=== PATIENT | male | born 1945 | race Two or more races ===

== ENCOUNTER 2023-02-21 14:25 | Inpatient (IN) | payer OTHER ==
[~2023-02-21] VITALS: Ht 172.7 cm; Wt 87.5 kg
[2023-02-21] MEDS ORDERED: LASIX20 MG PO (22:45)
[2023-02-21] MEDS ORDERED: PROSCAR5 MG PO (22:45)
[2023-02-21] MEDS ORDERED: TOPROL XL50 M1 PO (22:45)
[2023-02-21] MEDS ORDERED: TAMS0.4C PO (22:46)
[2023-02-21] MEDS ORDERED: VESICARE5 MG PO (22:46)
[2023-02-22] MEDS ORDERED: METOPROLOL TART50 MG PO (01:04)
== END 2023-02-28 11:32 | disposition home or self-care (01) | DRG 922 ==
LOC: ER 14:25 → ICU-2 02-23 12:14 → ICU 02-23 20:49 → MEDJ 02-26 19:44 → MEDI 02-27 13:39
PROVIDERS: ADMIT Specialist; ATTEND Specialist
PROC: B24BZZZ Ultrasonography of Heart with Aorta (ICD-10-PCS; principal; 2023-02-23)
PROC: 4A12X4Z Monitoring of Cardiac Electrical Activity, External Approach (ICD-10-PCS; 2023-02-26)
DX: T75.1XXA Unspecified effects of drowning and nonfatal submersion, initial encounter (principal); J69.0 Pneumonitis due to inhalation of food and vomit; I48.91 Unspecified atrial fibrillation; R09.02 Hypoxemia; Z20.822 Contact with and (suspected) exposure to COVID-19; I11.9 Hypertensive heart disease without heart failure